=== PATIENT | female | born 1995 | race Caucasian/White ===

== ENCOUNTER 2018-02-19 23:40 | Inpatient (IN) | payer OTHER ==
[2018-02-20] MEDS ORDERED: ACETAMINOPHEN 325 MG TAB PO (04:30)
[2018-02-20] MEDS ORDERED: NACL 0.9% 3 ML SYG IV (04:30)
[2018-02-20] MEDS: SOD CHLORIDE 0.9% 500 ML IV (05:45)
[2018-02-20 07:05] LABS: ADD MAN DIFF? NO
[2018-02-20 07:12] LABS: WHITE BLOOD COUNT 7.5 10^3/ul (4.8-10.8)
[2018-02-20 07:12] LABS: BASOPHILS % 0.3 % (0.0-2.0); HEMATOCRIT 30.6 % (37.0-47.0); HEMOGLOBIN 10.2 g/dl (12.0-16.0); LYMPHOCYTES # 0.8 10^3/ul (0.8-2.9); MEAN CORPUSCULAR HEMOGLOBIN 31.8 pg (29.0-33.0); MEAN CORPUSCULAR HGB CONC 33.3 g/dl (32.0-37.0); MEAN CORPUSCULAR VOLUME 95.3 fl (72.0-104.0); MEAN PLATELET VOLUME 10.7 fl (7.4-10.4); MONOCYTE # 0.8 10^3/ul (0.3-0.9); MONOCYTES % 10.5 % (0.0-13.0); NEUTROPHIL # 5.9 10^3/ul (1.6-7.5); NEUTROPHILS % 77.9 % (30.0-74.0); PLATELET COUNT 150 10^3/UL (140-415); RED BLOOD COUNT 3.21 10^6/ul (4.20-5.40); RED CELL DISTRIBUTION WIDTH 11.1 % (11.5-14.5)
[2018-02-20 07:39] LABS: ALANINE AMINOTRANSFERASE 19 IU/L (13-69); ALBUMIN 3.4 g/dl (3.3-4.9); ALBUMIN/GLOBULIN RATIO 1.13; ALKALINE PHOSPHATASE 67 IU/L (42-121); ANION GAP 15 (8-16); ASPARTATE AMINO TRANSFERASE 21 IU/L (15-46); BILIRUBIN,INDIRECT 0.4 mg/dl (0-1.1); BILIRUBIN,TOTAL 0.4 mg/dl (0.2-1.3); BLOOD UREA NITROGEN 12 mg/dl (7-20); CALCIUM 8.2 mg/dl (8.4-10.2); CARBON DIOXIDE 20 mmol/L (21-31); CHLORIDE 109 mmol/L (97-110); CREATININE 0.77 mg/dl (0.44-1.00); GLUCOSE 109 mg/dl (70-220); MAGNESIUM 1.3 mg/dl (1.7-2.5); PHOSPHORUS 2.6 mg/dl (2.5-4.9); POTASSIUM 3.8 mmol/L (3.5-5.1); SODIUM 140 mmol/L (135-144); TOTAL PROTEIN 6.4 g/dl (6.1-8.1)
[2018-02-20] MEDS: ONDANSETRON 4 MG INJ IV (08:17)
[2018-02-20] MEDS: TACROLIMUS 1 MG CAP PO ×2 (08:22→20:34)
[2018-02-20] MEDS: MYCOPHENOLATE MOFETIL 500 MG TABLET PO ×2 (08:22→20:35)
[2018-02-20] MEDS: CHOLECALCIFEROL 400 UNITS TAB PO (08:22)
[2018-02-20] MEDS: CEFTRIAXONE 1 GM/50 ML (PMX) 50 ML IVPB (08:22)
[2018-02-20] MEDS: RANITIDINE 150 MG TAB PO ×2 (08:22→20:35)
[2018-02-20] MEDS: predniSONE 5 MG TAB PO (08:22)
[2018-02-20] MEDS ORDERED: MYCOPHENOLATE 250 MG CAP PO (09:00)
[2018-02-20] MEDS ORDERED: MYCOPHENOLATE MOFETIL 1000 MG PO (09:00)
[2018-02-20] MEDS: ACETAMINOPHEN 325 MG TAB PO ×2 (14:50→22:33)
[2018-02-20 14:54] LABS: ADD UMIC YES; UR ASCORBIC ACID NEGATIVE (NEGATIVE); UR BACTERIA FEW /HPF (NONE SEEN); UR BILIRUBIN (Dip) NEGATIVE (NEGATIVE); UR BLOOD (Dip) 1+ mg/dL (NEGATIVE); UR CLARITY CLEAR (CLEAR); UR COLOR STRAW (YELLOW); UR GLUCOSE (Dip) 1+ mg/dL (NEGATIVE); UR KETONES (Dip) 1+ mg/dL (NEGATIVE); UR LEUKOCYTE ESTERASE (Dip) 1+ Leu/ul (NEGATIVE); UR NITRITE (Dip) NEGATIVE (NEGATIVE); UR RBC 0 /HPF (0-5); UR SPECIFIC GRAVITY (Dip) 1.008 (1.003-1.030); UR TOTAL PROTEIN (Dip) NEGATIVE (NEGATIVE); UR UROBILINOGEN (Dip) NEGATIVE (NEGATIVE); UR WBC 17 /HPF (0-5)
[2018-02-21 06:52] LABS: ADD MAN DIFF? NO
[2018-02-21 07:02] LABS: WHITE BLOOD COUNT 8.6 10^3/ul (4.8-10.8)
[2018-02-21 07:02] LABS: BASOPHILS % 0.2 % (0.0-2.0); EOSINOPHILS % 0.2 % (0.0-7.0); HEMATOCRIT 31.7 % (37.0-47.0); HEMOGLOBIN 10.9 g/dl (12.0-16.0); LYMPHOCYTES # 1.7 10^3/ul (0.8-2.9); LYMPHOCYTES % 19.3 % (18.0-55.0); MEAN CORPUSCULAR HEMOGLOBIN 32.7 pg (29.0-33.0); MEAN CORPUSCULAR HGB CONC 34.4 g/dl (32.0-37.0); MEAN CORPUSCULAR VOLUME 95.2 fl (72.0-104.0); MEAN PLATELET VOLUME 10.6 fl (7.4-10.4); MONOCYTE # 1.1 10^3/ul (0.3-0.9); MONOCYTES % 13.2 % (0.0-13.0); NEUTROPHIL # 5.7 10^3/ul (1.6-7.5); NEUTROPHILS % 65.9 % (30.0-74.0); PLATELET COUNT 169 10^3/UL (140-415); RED BLOOD COUNT 3.33 10^6/ul (4.20-5.40); RED CELL DISTRIBUTION WIDTH 10.9 % (11.5-14.5)
[2018-02-21 07:31] LABS: ANION GAP 15 (8-16); BLOOD UREA NITROGEN 10 mg/dl (7-20); CALCIUM 9.1 mg/dl (8.4-10.2); CARBON DIOXIDE 25 mmol/L (21-31); CHLORIDE 104 mmol/L (97-110); CREATININE 0.77 mg/dl (0.44-1.00); GLUCOSE 109 mg/dl (70-220); MAGNESIUM 1.6 mg/dl (1.7-2.5); PHOSPHORUS 3.7 mg/dl (2.5-4.9); POTASSIUM 4.2 mmol/L (3.5-5.1); SODIUM 140 mmol/L (135-144)
[2018-02-21] MEDS: predniSONE 5 MG TAB PO (08:44)
[2018-02-21] MEDS: MYCOPHENOLATE MOFETIL 500 MG TABLET PO ×2 (08:44→21:04)
[2018-02-21] MEDS: RANITIDINE 150 MG TAB PO ×2 (08:44→21:04)
[2018-02-21] MEDS: TACROLIMUS 1 MG CAP PO ×2 (08:45→21:04)
[2018-02-21] MEDS: CHOLECALCIFEROL 400 UNITS TAB PO (08:45)
[2018-02-21] MEDS: CEFTRIAXONE 1 GM/50 ML (PMX) 50 ML IVPB (08:46)
[2018-02-21] MEDS: MAGNESIUM SULFATE 3 GM in DEXTROSE 5% 100 ML IVPB (15:10)
[2018-02-21] MEDS: MAGNESIUM OXIDE 400 MG TAB PO (21:04)
[2018-02-22 06:30] LABS: ADD MAN DIFF? NO
[2018-02-22 06:47] LABS: BASOPHILS % 0.3 % (0.0-2.0); EOSINOPHILS # 0.1 10^3/ul (0.0-0.5); EOSINOPHILS % 0.9 % (0.0-7.0); HEMATOCRIT 31.5 % (37.0-47.0); HEMOGLOBIN 10.8 g/dl (12.0-16.0); LYMPHOCYTES # 2.5 10^3/ul (0.8-2.9); LYMPHOCYTES % 33.2 % (18.0-55.0); MEAN CORPUSCULAR HEMOGLOBIN 32.6 pg (29.0-33.0); MEAN CORPUSCULAR HGB CONC 34.3 g/dl (32.0-37.0); MEAN CORPUSCULAR VOLUME 95.2 fl (72.0-104.0); MEAN PLATELET VOLUME 10.4 fl (7.4-10.4); MONOCYTE # 0.9 10^3/ul (0.3-0.9); MONOCYTES % 11.5 % (0.0-13.0); NEUTROPHIL # 3.9 10^3/ul (1.6-7.5); NEUTROPHILS % 52.9 % (30.0-74.0); PLATELET COUNT 184 10^3/UL (140-415); RED BLOOD COUNT 3.31 10^6/ul (4.20-5.40)
[2018-02-22 06:47] LABS: WHITE BLOOD COUNT 7.4 10^3/ul (4.8-10.8)
[2018-02-22 07:05] LABS: ANION GAP 15 (8-16); BLOOD UREA NITROGEN 17 mg/dl (7-20); CALCIUM 9.3 mg/dl (8.4-10.2); CARBON DIOXIDE 27 mmol/L (21-31); CHLORIDE 105 mmol/L (97-110); CREATININE 0.82 mg/dl (0.44-1.00); POTASSIUM 3.9 mmol/L (3.5-5.1); SODIUM 143 mmol/L (135-144)
[2018-02-22 07:07] LABS: GLUCOSE 103 mg/dl (70-220)
[2018-02-22] MEDS: TACROLIMUS 1 MG CAP PO (08:27)
[2018-02-22] MEDS: CEFTRIAXONE 1 GM/50 ML (PMX) 50 ML IVPB (08:27)
[2018-02-22] MEDS: predniSONE 5 MG TAB PO (08:27)
[2018-02-22] MEDS: RANITIDINE 150 MG TAB PO (08:27)
[2018-02-22] MEDS: MAGNESIUM OXIDE 400 MG TAB PO (08:28)
[2018-02-22] MEDS: MYCOPHENOLATE MOFETIL 500 MG TABLET PO (08:28)
[2018-02-22] MEDS: CHOLECALCIFEROL 400 UNITS TAB PO (08:28)
[2018-02-22] MEDS ORDERED: MYCOPHENOLATE MOFETIL 500 MG TABLET PO (21:00)
[2018-02-24 08:21] LABS: TACROLIMUS 9.3 mcg/L
== END 2018-02-22 12:30 | disposition home or self-care (01) | DRG 690 ==
LOC: TEL 23:40
DX: N39.0 Urinary tract infection, site not specified (principal); Z94.0 Kidney transplant status; E83.42 Hypomagnesemia; R00.0 Tachycardia, unspecified
CPT/HCPCS: 80048; 80053; 80197; 81001; 83735; 84100; 85025; 87040; 87086; 93005

== ENCOUNTER 2018-03-08 19:56 | Emergency (ER) | payer OTHER ==
[2018-03-08] MEDS: SODIUM CHLORIDE 0.9% 1L BAG IV* (22:33)
[2018-03-08] MEDS: ONDANSETRON 4 MG INJ IV (22:33)
[2018-03-08 22:39] LABS: ADD MAN DIFF? NO
[2018-03-08 22:46] LABS: WHITE BLOOD COUNT 13.2 10^3/ul (4.8-10.8)
[2018-03-08 22:46] LABS: BASOPHILS % 0.1 % (0.0-2.0); HEMATOCRIT 32.1 % (37.0-47.0); HEMOGLOBIN 11.1 g/dl (12.0-16.0); LYMPHOCYTES # 0.8 10^3/ul (0.8-2.9); LYMPHOCYTES % 6.1 % (18.0-55.0); MEAN CORPUSCULAR HEMOGLOBIN 32.6 pg (29.0-33.0); MEAN CORPUSCULAR HGB CONC 34.6 g/dl (32.0-37.0); MEAN CORPUSCULAR VOLUME 94.1 fl (72.0-104.0); MEAN PLATELET VOLUME 11.1 fl (7.4-10.4); MONOCYTE # 0.7 10^3/ul (0.3-0.9); MONOCYTES % 5.5 % (0.0-13.0); NEUTROPHIL # 11.4 10^3/ul (1.6-7.5); NEUTROPHILS % 86.6 % (30.0-74.0); PLATELET COUNT 170 10^3/UL (140-415); RED BLOOD COUNT 3.41 10^6/ul (4.20-5.40); RED CELL DISTRIBUTION WIDTH 11.7 % (11.5-14.5)
[2018-03-08 23:04] LABS: LACTIC ACID 1.3 mmol/L (0.5-2.0)
[2018-03-08 23:04] LABS: ALANINE AMINOTRANSFERASE 25 IU/L (13-69); ALBUMIN 4.1 g/dl (3.3-4.9); ALBUMIN/GLOBULIN RATIO 0.93; ALKALINE PHOSPHATASE 88 IU/L (42-121); ASPARTATE AMINO TRANSFERASE 21 IU/L (15-46); BILIRUBIN,INDIRECT 0.3 mg/dl (0-1.1); BILIRUBIN,TOTAL 0.3 mg/dl (0.2-1.3); BLOOD UREA NITROGEN 56 mg/dl (7-20); CALCIUM 8.8 mg/dl (8.4-10.2); CARBON DIOXIDE 22 mmol/L (21-31); CHLORIDE 99 mmol/L (97-110); CREATININE 2.55 mg/dl (0.44-1.00); GLUCOSE 113 mg/dl (70-220); SODIUM 140 mmol/L (135-144); TOTAL PROTEIN 8.5 g/dl (6.1-8.1)
[2018-03-08 23:05] LABS: PROTIME 15.4 Sec (11.9-14.9); PT RATIO 1.2
[2018-03-08 23:06] LABS: PARTIAL THROMBOPLASTIN TIME 35.2 Sec (25.0-35.0)
[2018-03-08 23:08] LABS: ANION GAP 23 (8-16); POTASSIUM 3.9 mmol/L (3.5-5.1)
[2018-03-09] MEDS: CEFEPIME 1GM/50 ML (PMX) 50 ML IVPB (00:07)
[2018-03-09 00:35] LABS: ADD UMIC YES; UR ASCORBIC ACID NEGATIVE (NEGATIVE); UR BACTERIA MODERATE /HPF (NONE SEEN); UR BILIRUBIN (Dip) NEGATIVE (NEGATIVE); UR BLOOD (Dip) 1+ mg/dL (NEGATIVE); UR CLARITY CLOUDY (CLEAR); UR COLOR YELLOW (YELLOW); UR GLUCOSE (Dip) NEGATIVE (NEGATIVE); UR KETONES (Dip) TRACE mg/dL (NEGATIVE); UR LEUKOCYTE ESTERASE (Dip) 2+ Leu/ul (NEGATIVE); UR MUCUS FEW /HPF (NONE SEEN); UR NITRITE (Dip) NEGATIVE (NEGATIVE); UR RBC 8 /HPF (0-5); UR SPECIFIC GRAVITY (Dip) 1.013 (1.003-1.030); UR SQUAMOUS EPITHELIAL CELL MODERATE /HPF (FEW); UR TOTAL PROTEIN (Dip) 1+ mg/dl (NEGATIVE); UR UROBILINOGEN (Dip) NEGATIVE (NEGATIVE); UR WBC 72 /HPF (0-5)
[2018-03-09] MEDS ORDERED: ONDANSETRON (ODT) 4 MG TAB ODT (02:08)
[2018-03-09] MEDS ORDERED: ACETAMINOPHEN 500 MG TAB (02:08)
[2018-03-09] MEDS: ONDANSETRON (ODT) 4 MG TAB ODT (02:14)
[2018-03-09] MEDS: ACETAMINOPHEN 500 MG TAB PO (02:15)
== END 2018-03-09 07:06 | disposition short-term general hospital (02) ==
LOC: E/R 03-09 07:06 → FTE 19:56
DX: D72.829 Elevated white blood cell count, unspecified (principal); N10 Acute pyelonephritis; N28.9 Disorder of kidney and ureter, unspecified; R10.9 Unspecified abdominal pain; Z94.0 Kidney transplant status
CPT/HCPCS: 36415; 71045; 74176; 80053; 81001; 83605; 84703; 85025; 85610; 85730; 87040; 87086; 93005; 96365; 96375; 99285-25

== ENCOUNTER 2018-09-18 08:26 | Emergency (ER) | payer OTHER ==
[2018-09-18] MEDS: CEFTRIAXONE 1 GM INJ IM (09:11)
[2018-09-18] MEDS: LIDOCAINE 1% (MPF) 5 ML VIAL INJ (09:11)
[2018-09-18 09:17] LABS: URINE BLOOD (Dip) POC 1+ (NEGATIVE); URINE GLUCOSE (Dip) POC Negative (NEGATIVE); URINE KETONES (Dip) POC Negative (NEGATIVE); URINE LEUKOCYTE EST (Dip) POC 3+ (NEGATIVE); URINE NITRITE (Dip) POC Positive (NEGATIVE); URINE TOTAL PROTEIN POC 2+ (NEGATIVE)
[2018-09-18 09:17] LABS: URINE PH (Dip) POC 6.5 (5.0-8.5)
== END 2018-09-18 10:00 | disposition home or self-care (01) ==
LOC: FTE 08:26
DX: N39.0 Urinary tract infection, site not specified (principal)
CPT/HCPCS: 81003; 81025; 87086; 96372; 99284-25

== ENCOUNTER 2019-01-08 13:41 | Emergency (ER) | payer OTHER ==
[2019-01-08] MEDS: DIPHENHYDRAMINE 25 MG CAP PO (14:21)
[2019-01-08 16:36] LABS: ADD MAN DIFF? NO
[2019-01-08 16:39] LABS: WHITE BLOOD COUNT 10.9 10^3/ul (4.8-10.8)
[2019-01-08 16:39] LABS: BASOPHIL # 0.1 10^3/ul (0.0-0.1); BASOPHILS % 0.5 % (0.0-2.0); EOSINOPHILS # 0.3 10^3/ul (0.0-0.5); EOSINOPHILS % 2.8 % (0.0-7.0); HEMATOCRIT 36.1 % (37.0-47.0); LYMPHOCYTES # 1.9 10^3/ul (0.8-2.9); LYMPHOCYTES % 17.2 % (15.0-51.0); MEAN CORPUSCULAR HEMOGLOBIN 29.2 pg (29.0-33.0); MEAN CORPUSCULAR HGB CONC 33.2 g/dl (32.0-37.0); MEAN CORPUSCULAR VOLUME 87.8 fl (82.0-101.0); MEAN PLATELET VOLUME 10.3 fl (7.4-10.4); MONOCYTE # 0.6 10^3/ul (0.3-0.9); MONOCYTES % 5.7 % (0.0-11.0); NEUTROPHIL # 7.8 10^3/ul (1.6-7.5); NEUTROPHILS % 71.8 % (39.0-77.0); PLATELET COUNT 270 10^3/UL (140-415); RED BLOOD COUNT 4.11 10^6/ul (4.20-5.40); RED CELL DISTRIBUTION WIDTH 12.8 % (11.5-14.5)
[2019-01-08 16:57] LABS: ADD UMIC YES; UR ASCORBIC ACID NEGATIVE (NEGATIVE); UR BILIRUBIN (Dip) NEGATIVE (NEGATIVE); UR BLOOD (Dip) 1+ mg/dL (NEGATIVE); UR CLARITY SLIGHTLY CLOUDY (CLEAR); UR COLOR COLORLESS (YELLOW); UR GLUCOSE (Dip) NEGATIVE (NEGATIVE); UR KETONES (Dip) NEGATIVE (NEGATIVE); UR LEUKOCYTE ESTERASE (Dip) TRACE Leu/ul (NEGATIVE); UR NITRITE (Dip) NEGATIVE (NEGATIVE); UR RBC 1 /HPF (0-5); UR SPECIFIC GRAVITY (Dip) 1.006 (1.003-1.030); UR SQUAMOUS EPITHELIAL CELL FEW /HPF (FEW); UR TOTAL PROTEIN (Dip) NEGATIVE (NEGATIVE); UR UROBILINOGEN (Dip) NEGATIVE (NEGATIVE); UR WBC 7 /HPF (0-5)
[2019-01-08 17:07] LABS: ANION GAP 13 (5-13); BLOOD UREA NITROGEN 26 mg/dl (7-20); CALCIUM 8.9 mg/dl (8.4-10.2); CARBON DIOXIDE 17 mmol/L (21-31); CHLORIDE 110 mmol/L (97-110); CREATININE 2.38 mg/dl (0.44-1.00); Estimated GFR 26 mL/min (>60); GLUCOSE 100 mg/dl (70-220); POTASSIUM 3.5 mmol/L (3.5-5.1); SODIUM 140 mmol/L (135-144)
[2019-01-08 17:09] LABS: UR BACTERIA FEW /HPF (NONE SEEN)
[2019-01-08] MEDS: LIDOCAINE 1% (MPF) 5 ML VIAL INFIL (17:38)
[2019-01-08] MEDS: CEFTRIAXONE 1 GM INJ IM (17:39)
== END 2019-01-08 17:48 | disposition home or self-care (01) ==
LOC: FTE 13:41
DX: R30.0 Dysuria (principal); Z94.0 Kidney transplant status
CPT/HCPCS: 80048; 81001; 84703; 85025; 96372; 99284-25

== ENCOUNTER 2019-01-14 14:21 | Emergency (ER) | payer OTHER ==
[2019-01-14 15:34] LABS: ADD MAN DIFF? NO
[2019-01-14] MEDS: ONDANSETRON 4 MG INJ IV (15:35)
[2019-01-14] MEDS: SOD CHLORIDE 0.9% 1,000 ML IV (15:36)
[2019-01-14 15:43] LABS: WHITE BLOOD COUNT 14.2 10^3/ul (4.8-10.8)
[2019-01-14 15:43] LABS: BASOPHIL # 0.1 10^3/ul (0.0-0.1); BASOPHILS % 0.5 % (0.0-2.0); EOSINOPHILS # 0.3 10^3/ul (0.0-0.5); EOSINOPHILS % 1.8 % (0.0-7.0); HEMATOCRIT 32.5 % (37.0-47.0); HEMOGLOBIN 11.1 g/dl (12.0-16.0); LYMPHOCYTES # 1.1 10^3/ul (0.8-2.9); LYMPHOCYTES % 7.7 % (15.0-51.0); MEAN CORPUSCULAR HEMOGLOBIN 29.7 pg (29.0-33.0); MEAN CORPUSCULAR HGB CONC 34.2 g/dl (32.0-37.0); MEAN CORPUSCULAR VOLUME 86.9 fl (82.0-101.0); MEAN PLATELET VOLUME 11.3 fl (7.4-10.4); MONOCYTE # 0.7 10^3/ul (0.3-0.9); NEUTROPHIL # 11.8 10^3/ul (1.6-7.5); NEUTROPHILS % 83.2 % (39.0-77.0); PLATELET COUNT 244 10^3/UL (140-415); RED BLOOD COUNT 3.74 10^6/ul (4.20-5.40); RED CELL DISTRIBUTION WIDTH 13.2 % (11.5-14.5)
[2019-01-14 16:14] LABS: ADD UMIC YES; UR ASCORBIC ACID NEGATIVE (NEGATIVE); UR BACTERIA FEW /HPF (NONE SEEN); UR BILIRUBIN (Dip) NEGATIVE (NEGATIVE); UR BLOOD (Dip) 1+ mg/dL (NEGATIVE); UR CLARITY CLOUDY (CLEAR); UR COLOR YELLOW (YELLOW); UR GLUCOSE (Dip) NEGATIVE (NEGATIVE); UR KETONES (Dip) NEGATIVE (NEGATIVE); UR LEUKOCYTE ESTERASE (Dip) TRACE Leu/ul (NEGATIVE); UR NITRITE (Dip) NEGATIVE (NEGATIVE); UR RBC 5 /HPF (0-5); UR SPECIFIC GRAVITY (Dip) 1.006 (1.003-1.030); UR SQUAMOUS EPITHELIAL CELL MANY /HPF (FEW); UR TOTAL PROTEIN (Dip) 1+ mg/dl (NEGATIVE); UR UROBILINOGEN (Dip) NEGATIVE (NEGATIVE); UR WBC 27 /HPF (0-5)
[2019-01-14 16:39] LABS: ALANINE AMINOTRANSFERASE 7 IU/L (13-69); ALBUMIN 3.8 g/dl (3.3-4.9); ALBUMIN/GLOBULIN RATIO 0.76; ALKALINE PHOSPHATASE 80 IU/L (42-121); ANION GAP 9 (5-13); ASPARTATE AMINO TRANSFERASE 17 IU/L (15-46); BILIRUBIN,INDIRECT 0.4 mg/dl (0-1.1); BILIRUBIN,TOTAL 0.4 mg/dl (0.2-1.3); BLOOD UREA NITROGEN 33 mg/dl (7-20); CALCIUM 8.6 mg/dl (8.4-10.2); CARBON DIOXIDE 15 mmol/L (21-31); CHLORIDE 113 mmol/L (97-110); CREATININE 3.66 mg/dl (0.44-1.00); Estimated GFR 16 mL/min (>60); GLUCOSE 99 mg/dl (70-220); LIPASE 170 U/L (23-300); POTASSIUM 3.7 mmol/L (3.5-5.1); SODIUM 137 mmol/L (135-144); TOTAL PROTEIN 8.8 g/dl (6.1-8.1)
[2019-01-14] MEDS: CEFEPIME 1GM/50 ML (PMX) 50 ML IVPB (17:56)
[2019-01-14] MEDS: SODIUM CHLORIDE 0.9% 1L BAG IV* (17:57)
[2019-01-14] MEDS ORDERED: ONDANSETRON 4 MG INJ IV (19:00)
[2019-01-14] MEDS ORDERED: ACETAMINOPHEN 325 MG TAB PO (19:00)
[2019-01-14] MEDS: METHYLPRED. NA SUCC 500 MG in DEXTROSE 5% 50 ML IVPB (19:50)
[2019-01-14 21:25] LABS: LACTIC ACID 0.8 mmol/L (0.5-2.0)
[2019-01-15 08:57] LABS: ADD MAN DIFF? NO
[2019-01-15 09:01] LABS: BASOPHILS % 0.2 % (0.0-2.0); HEMATOCRIT 34.5 % (37.0-47.0); HEMOGLOBIN 11.6 g/dl (12.0-16.0); LYMPHOCYTES % 8.1 % (15.0-51.0); MEAN CORPUSCULAR HEMOGLOBIN 29.4 pg (29.0-33.0); MEAN CORPUSCULAR HGB CONC 33.6 g/dl (32.0-37.0); MEAN CORPUSCULAR VOLUME 87.6 fl (82.0-101.0); MEAN PLATELET VOLUME 10.6 fl (7.4-10.4); MONOCYTE # 0.1 10^3/ul (0.3-0.9); MONOCYTES % 0.7 % (0.0-11.0); NEUTROPHIL # 10.9 10^3/ul (1.6-7.5); NEUTROPHILS % 88.9 % (39.0-77.0); PLATELET COUNT 262 10^3/UL (140-415); RED BLOOD COUNT 3.94 10^6/ul (4.20-5.40); RED CELL DISTRIBUTION WIDTH 12.5 % (11.5-14.5)
[2019-01-15 09:01] LABS: WHITE BLOOD COUNT 12.3 10^3/ul (4.8-10.8)
[2019-01-15 09:18] LABS: ANION GAP 16 (5-13); BLOOD UREA NITROGEN 38 mg/dl (7-20); CALCIUM 9.1 mg/dl (8.4-10.2); CARBON DIOXIDE 11 mmol/L (21-31); CHLORIDE 117 mmol/L (97-110); CREATININE 3.35 mg/dl (0.44-1.00); Estimated GFR 17 mL/min (>60); GLUCOSE 121 mg/dl (70-220); POTASSIUM 4.5 mmol/L (3.5-5.1); SODIUM 144 mmol/L (135-144)
== END 2019-01-15 16:26 | disposition short-term general hospital (02) ==
LOC: E/R 01-15 16:26 → FTE 14:21
DX: O98.811 Other maternal infectious and parasitic diseases complicating pregnancy, first trimester (principal); R65.20 Severe sepsis without septic shock; A41.9 Sepsis, unspecified organism; N17.9 Acute kidney failure, unspecified; O23.11 Infections of bladder in pregnancy, first trimester; O26.891 Other specified pregnancy related conditions, first trimester; O99.111 Other diseases of the blood and blood-forming organs and certain disorders involving the immune mechanism complicating pregnancy, first trimester; D72.829 Elevated white blood cell count, unspecified; T86.11 Kidney transplant rejection; O26.831 Pregnancy related renal disease, first trimester; O99.281 Endocrine, nutritional and metabolic diseases complicating pregnancy, first trimester; E87.2 Acidosis; O99.011 Anemia complicating pregnancy, first trimester; R00.0 Tachycardia, unspecified; D64.9 Anemia, unspecified; Y82.8 Other medical devices associated with adverse incidents; Z3A.01 Less than 8 weeks gestation of pregnancy; Z94.0 Kidney transplant status
CPT/HCPCS: 36415; 76801; 76817; 80048; 80053; 81001; 81025; 83605; 83690; 84702; 84703; 85025; 87040-91; 87086; 96374; 96375; 99285-25